=== PATIENT | female | born 1960 | race Caucasian/White ===

== ENCOUNTER → 2021-10-19 09:46 | Day surgery (SDC) | payer OTHER, SELFPAY ==
[2021-10-18 12:57] VITALS: BMI 34.1
[2021-10-19] VITALS (10 sets, daily range): BP systolic 129–163; BP diastolic 80–104; PULSE 72–83; RESP 12–20; TEMP 36.1–36.2; O2SAT 93–98
[2021-10-19] MEDS: sodium chloride 0.9% 1,000 ML 30 ML IV (10:27)
[2021-10-19 11:04] LABS: Anion Gap 16.7 (5-19); Blood Urea Nitrogen 8 mg/dL (8-23); Calcium 9.5 mg/dL (8.5-10.5); Carbon Dioxide 27 mmol/L (22-29); Chloride 104 mmol/L (98-107); Glucose 114 mg/dL (65-115); Osmolality Calculated 297 mOsm/kg (285-295); Potassium 3.7 mmol/L (3.5-5.1); Sodium 144 mmol/L (136-145)
--- NOTE | 2021-10-19 12:24 | W.PM.OPSUD ---
Surgery/Procedure H&P Update DATE OF PROCEDURE: October 19, 2021 DATE H&P PERFORMED: 10/08/21 H&P UPDATE INFORMATION: I have reviewed H&P completed within last 30 days, I have examined patient prior to procedure and No changes to prior documentation PREOP DIAGNOSIS: Conductive hearing loss, right ear PLANNED PROCEDURE: Operation Date: 10/19/21 11:30 Proposed Procedures p Baha Implants(Right) - Donovan Cochran MD
[2021-10-19] MEDS: clindamycin 600 MG/50 ML PREMIX 100 MG IV (12:31)
[2021-10-19] MEDS: neomycin-poly-bacitracin oint 28 gm 1 APPLIC TOPICAL (13:18)
--- NOTE | 2021-10-19 13:32 | P.OP_ITS ---
Operative Report Date of procedure: October 19, 2021 Pre-op diagnosis: Preop Diagnosis Conductive hearing loss, right ear Post-op diagnosis: same Post-op findings: Well healed post surgical changes of the right ear Normal appearing mastoid, right ear Procedure done: Right ear bone anchored hearing aid/implant placement Implants: 9X4mm Ponto Implant Pathology: none sent Surgeon: Donovan Cochran Piano [employer] Refinisher: Ky Holm Anesthesia: General Estimated blood loss (mL): 5 IV fluids (mL): 900 Complications: None Findings: - Well healed post surgical changes of the right ear - Normal right mastoid bone Condition: stable Disposition: PACU Brief History: 61 yo wf with a h/o severe conductive hearing loss in the right ear who desires surgical therapy. Procedure: The patient was identified in the preoperative holding area and was taken to the operating where she was placed on the operating table in the supine position. Anesthesia was obtained with general endotracheal anesthesia and the table was turned 180 degrees. The patient's head was turned to the left exposing the right ear to the operating surgeon. The area behind the patient's right ear was shaved and the surgical site was identified and marked out with the surgical indicator. A 27-gauge needle was used to measure the depth of the skin over the implant area, and then the area was injected with local anesthesia. The patient was then prepped and draped in the usual sterile fashion. A 5mm punch biopsy tool was used to remove a plug of tissue from the incision site and the soft tissue was removed from the area overlying the mastoid cortex on the right. The microscope and rasportorium were used to remove the mastoid periosteum from the surgical site and hemostasis was achieved with electrocautery. With the guide catheter in place the surgical proprietary implant drill bit was used to create a 4 mm implant hole in the mastoid cortex. The implant site was inspected and was found to be adequate, so a 4 x 9 mm Ponto implant was was placed with the surgical drill set at 50 N centimeters of torque. Once the implant was in the proper position, it was tightened down with the manual wrench. At this point triple antibiotic ointment was placed around the implant and a sterile dressing was placed on the implant site. At this point the procedure was terminated and control of the patient was returned to anesthesia where she underwent an uneventful reversal of anesthesia and extubation and was taken to the recovery room in stable condition. There were no operative or anesthetic complications.
--- NOTE | 2021-10-19 13:35 | P.PCN_ITS ---
PACU note Narrative: VSS, Good respiratory effort, report to OPERATOR HELPER Exam: awake
--- NOTE | 2021-10-19 13:35 | PM.PACU ---
PACU note Narrative: VSS, Good respiratory effort, report to BREAKER OILER Exam: awake
[2021-10-19] MEDS: fentaNYL 50 mcg/mL INJ 2mL IVP ×2 (13:47→13:54)
== END | disposition home or self-care (01) ==
PROVIDERS: Anesthesiology; Visit Provider Specialist
PROC: (CPT 69710; principal; 2021-10-19 11:20)
DX: H90.2 Conductive hearing loss, unspecified (principal); K21.9 Gastro-esophageal reflux disease without esophagitis; Z86.19 Personal history of other infectious and parasitic diseases; E03.9 Hypothyroidism, unspecified
CPT/HCPCS: 69714; 12345; 36415; 80048; J0330; J1100; J2405; J2704; J3010; J3490; J7030; L8690